=== PATIENT | female | born 1995 | race Caucasian/White ===

== ENCOUNTER 2022-08-25 00:35 | Emergency (ER) | payer MEDICAID, SELFPAY ==
--- NOTE | ~2022-08-25 | XR_ITS ---
EXAMINATION: XR CHEST CLINICAL INFORMATION: Pain, rule out pneumonia COMPARISON: None TECHNIQUE: Frontal view of the chest was obtained. FINDINGS: The lungs are clear with no focal consolidation. No evidence of pneumothorax, pulmonary edema, or pleural effusions. The cardiomediastinal silhouette is unremarkable. No acute osseous findings. XR/XR chest 1V IMPRESSION: No acute cardiopulmonary findings.
[2022-08-25 00:49] VITALS: BP 109/87; PULSE 74; RESP 18; TEMP 36.1; O2SAT 100; BMI 24.8
[2022-08-25 01:25] LABS: COVID-19 Test Negative (Negative); IDNOW Serial# BCCEAD1C
[2022-08-25 01:28] LABS: IDNOW Serial# 16C4AD1C; Influenza A Negative (Negative); Influenza B2 Negative (Negative)
--- NOTE | 2022-08-25 01:48 | ED.URI ---
HPI - URI/Sore Throat General Chief Complaint: Upper Respiratory Symptoms Stated Complaint: body ache Time Seen by Provider: 08/25/22 01:41 Source: patient Mode of arrival: ambulatory Limitations: no limitations History of Present Illness HPI Narrative: Patient comes to the emergency room complaining of 4 days of, subjective fever, chills, generalized malaise, several episodes of vomiting and diarrhea. Patient denies chest pain or shortness of breath. No abdominal pain. No UTI symptoms. Related Data Previous Rx's Medication Instructions Recorded ibuprofen 600 mg tablet 600 mg PO Q6H PRN fever or pain 08/25/22 #20 tabs loperamide 2 mg capsule 2 mg PO Q6H PRN loose stool #14 08/25/22 caps ondansetron HCl 4 mg tablet 4 mg PO Q6H PRN nausea and 08/25/22 vomiting #10 tabs Allergies Allergy/AdvReac Type Severity Reaction Status Date / Time No Known Allergies Allergy Verified 08/25/22 00:52 Review of Systems Review of Systems: Constitutional : No Weight loss, complaining of subjective fever and chills, generalized malaise ENT/Mouth : No Hearing loss, No Ear Pain, No Nasal Congestion, No Sinus Pain, No Hoarseness, No sore throat, No Rhinorrhea, No Swallowing Difficulty Eyes: No Eye Pain, No Swelling, No Redness, No Foreign Body, No Discharge, No Vision Changes Cardiovascular : No Chest Pain, No SOB, No Dyspnea on Exertion, No Orthopnea, No Edema, No Palpitations Respiratory : Complaining of productive Cough, No Sputum, No Wheezing, No Smoke Exposure, No Dyspnea Gastrointestinal : Complaining of nausea vomiting and diarrhea, No Constipation, No abdominal Pain, No Hematochezia, No Melena Genitourinary : no irregular bleeding, No Dysuria, No Urinary Frequency, No Hematuria, No Urinary Incontinence, No Urgency, No Flank Pain, No Urinary Flow Changes, No Hesitancy Musculoskeletal : No joint pain, No Myalgias, No Joint Swelling Skin : No Skin Lesions, No rash Neuro : No Weakness, No Numbness, No Paresthesias, No Loss of Consciousness, No Dizziness, No Headache Psych : No Anxiety/Panic, No Depression, No SI/HI/AH/VH, No Social Issues, Heme/Lymph: No Bruising, No Bleeding,No Lymphadenopathy Endocrine : No Polyuria, No Polydipsia, No Temperature Intolerance PMFSH Past Medical History Medical History Childhood asthma Physical Exam Vital Signs: Vital Signs: Last Vital Signs Temp 97 F 08/25/22 00:49 Pulse 74 08/25/22 00:49 Resp 18 08/25/22 00:49 BP 109/87 08/25/22 00:49 Pulse Ox 100 08/25/22 00:49 O2 Del Method 08/25/22 00:49 BMI result Body Mass Index 24.8 Const: Other: Appearance: Alert. Oriented X3. No acute distress. Eyes: Pupils equal, round and reactive to light. ENT: Pharynx normal. Neck: Normal inspection. Neck supple. No lymph nodes noted. No crepitus CVS: Normal heart rate and rhythm. Pulses normal. Normal S1 and S2 Respiratory: No respiratory distress. Breath sounds normal. No Wheezing. No rales Abdomen: Soft and nontender. No rigidity. No distention. Skin: Skin warm and dry. Normal skin color. Normal skin turgor. Extremities: No lower extremity edema. No Lacerations. No Rash Neuro: Oriented X 3. No motor deficit. No sensory deficit. Moving all extremities. No slurred speech. CN 2 through 12 grossly intact Psych: calm, cooperative, normal affect Course Course Course Narrative: Patient tested negative for COVID and influenza, chest x-ray negative. Patient likely has a viral syndrome. Patient given p.o. loperamide and Zofran. MDM - URI/Sore Throat Lab Data Labs: Lab Results 08/25/22 08/25/22 Range/Units 00:55 00:56 COVID-19 (HÉCTOR) Negative (Negative) COVID-19 Clin Com See Note Influenza Type A (SD) Negative (Negative) Influenza Type B (DS) Negative (Negative) Influenza A & B Note See Note Imaging Data Chest x-ray: Radiologist's impression: FINDINGS: The lungs are clear with no focal consolidation. No evidence of pneumothorax, pulmonary edema, or pleural effusions. The cardiomediastinal silhouette is unremarkable. No acute osseous findings. XR/XR chest 1V IMPRESSION: No acute cardiopulmonary findings Discharge Plan Discharge Clinical Impression: Acute viral syndrome, Nausea vomiting and diarrhea Patient Disposition: Home, Self-Care Instructions: Upper Respiratory Infection (ED), Acute Nausea and Vomiting (ED) Additional Instructions: Please follow-up with your primary care physician tomorrow. If you have any worsening or new symptoms, please return to the emergency room or call 911 Prescriptions: New ibuprofen 600 mg tablet 600 mg PO Q6H PRN (Reason: fever or pain) Qty: 20 0RF loperamide 2 mg capsule 2 mg PO Q6H PRN (Reason: loose stool) Qty: 14 0RF ondansetron HCl 4 mg tablet 4 mg PO Q6H PRN (Reason: nausea and vomiting) Qty: 10 0RF
[2022-08-25] MEDS: Loperamide HCl 2 MG CAPSULE 4 MG PO (02:01)
[2022-08-25] MEDS: Ondansetron ODT 4 MG TAB.RAPDIS TRANSLINGU (02:01)
--- OUTSIDE RECORDS SUMMARY | 2022-08-25 02:07 | XMS_ITS | Continuity of Care Document ---
:1995 Author Organization [facility] Address [address] [place] [address]- Care Team Providers Name Role Phone Not on Staff, PCP Primary Care Physician Unavailable Encounter [facility] [place] Date(s): 12/22/20 - 01/21/21 [facility] [address], [place] [address] Allergies, Adverse Reactions, Alerts Substance Reaction Severity Status NKA Active Immunizations Not Given Vaccine Date Status Refusal Reason influenza virus vaccine, inactivated 12/14/20 Not Given Patient Refuses Medications loperamide 2 mg oral tablet 1 tablet = 2 mg, By Mouth, Every 6 hours, PRN as needed for loose stool, not to exceed 16 mg/day, # 20 tablet, 0 Refills, Maintenance, 12/16/20 17:56:00 EDT, Tablet, [facility], Partial fill upon patient request if the prescription is fo... Start Date: 12/16/20 Status: OrderedZofran 4 mg oral tablet 1 tablet = 4 mg, By Mouth, Every 8 hours, PRN Nausea & Vomiting, # 20 tablet, 0 Refills, Maintenance, 12/16/20 17:55:00 EDT, Tablet, [facility], Partial fill upon patient request if the prescription is for a schedule II opioid drug., 157... Start Date: 12/16/20 Status: Ordered Social History Social History Type Response Smoking Status Never (less than 100 in life time) entered on: 12/13/20 Sex
--- OUTSIDE RECORDS SUMMARY | 2022-08-25 02:07 | XMS_ITS | Continuity of Care Document ---
:1995 Author Organization [facility] Address [address] [place] [address]- Care Team Providers Name Role Phone Not on Staff, PCP Primary Care Physician Unavailable Encounter [facility] [place] Date(s): 12/19/20 - 01/18/21 [facility] [address] [place], [place] [address] Allergies, Adverse Reactions, Alerts Substance Reaction Severity [...] 0 Refills, Maintenance, 12/16/20 17:56:00 EDT, Tablet, [facility], Partial fill upon patient request if the prescription is fo... Start Date: 12/16/20 Status: OrderedZofran 4 mg oral tablet 1 tablet = 4 mg, By Mouth, Every 8 hours, PRN Nausea & Vomiting, # 20 tablet, 0 Refills, Maintenance, 12/16/20 17:55:00 EDT, Tablet, [facility], Partial fill upon patient request if the prescription is for a schedule II opioid drug., 157... Start Date: 12/16/20 Status: Ordered Social History Social History Type Response Smoking Status Never (less than 100 in life time) entered on: 12/13/20 Sex
--- OUTSIDE RECORDS SUMMARY | 2022-08-25 02:07 | XMS_ITS | Continuity of Care Document ---
:1995 Author Organization [facility] Address [address] [place] [address]- Care Team Providers Name Role Phone Not on Staff, PCP Primary Care Physician Unavailable Encounter [facility] [place] [place] Date(s): 12/24/20 - 04/23/21 [facility] [address] [place] [id number] Attending Physician: Joel Rossi MD Admitting Physician: Joel Rossi MD Referring Physician: Not on Staff, Referring MD Allergies, Adverse Reactions, Alerts Substance Reaction Severity [...] 0 Refills, Maintenance, 12/16/20 17:56:00 EDT, Tablet, [facility], Partial fill upon patient request if the prescription is fo... Start Date: 12/16/20 Status: OrderedZofran 4 mg oral tablet 1 tablet = 4 mg, By Mouth, Every 8 hours, PRN Nausea & Vomiting, # 20 tablet, 0 Refills, Maintenance, 12/16/20 17:55:00 EDT, Tablet, [facility], Partial fill upon patient request if the prescription is for a schedule II opioid drug., 157... Start Date: 12/16/20 Status: Ordered Social History Social History Type Response Smoking Status Never (less than 100 in life time) entered on: 12/13/20 Sex
--- OUTSIDE RECORDS SUMMARY | 2022-08-25 02:07 | XMS_ITS | Continuity of Care Document ---
:1995 Author Organization [facility] Address [address] [place] [address]- Care Team Providers Name Role Phone Not on Staff, PCP Primary Care Physician Unavailable Encounter [facility] [place] Date(s): 12/13/20 - 12/16/20 [facility] [address] [place] [id number] Encounter Diagnosis enteritis (Final) - 12/14/20 Discharge Disposition: A-D/C Home Attending Physician: Edin Barrera MD Admitting Physician: Zeke Lee MD Referring Physician: Not on Staff, Referring [...] 0 Refills, Maintenance, 12/16/20 17:56:00 EDT, Tablet, [facility], Partial fill upon patient request if the prescription is fo... Start Date: 12/16/20 Status: OrderedZofran 4 mg oral tablet 1 tablet = 4 mg, By Mouth, Every 8 hours, PRN Nausea & Vomiting, # 20 tablet, 0 Refills, Maintenance, 12/16/20 17:55:00 EDT, Tablet, [facility], Partial fill upon patient request if the prescription is for a schedule II opioid drug., 157... Start Date: 12/16/20 Status: Ordered Results Orders for Microbiology Reports Name Date Stool Culture 12/15/20 Microbiology Reports TEST:Stool Culture STATUS:Unauthenticated BODY SITE: SOURCE:STOOL COLLECTED DATE/TIME:12/15/20 7:25 PMStool Culture SPECIMEN DESCRIPTION : STOOL IN FRANK BARBARA PRESERVATIVE SPECIAL REQUESTS : NONE REPORT STATUS : PRELIMINARY REPORT Vital Signs Most recent to oldest 1 2 3 [Reference Range]: Height 157.48 cm 157.48 cm 157.48 cm (12/16/20 4:02 PM) (12/16/20 11:54 AM) (12/16/20 8: 19 AM) Weight 63.63 kg 63.63 kg (12/16/20 8:19 AM) (12/13/20 8:24 PM) Oxygen Saturation [94-100 %] 100 % 100 % 100 % (12/16/20 4:02 PM) (12/16/20 11:54 AM) (12/16/20 10 :30 AM) Pulse Rate [55-90 bpm] 83 bpm 70 bpm 82 bpm (12/16/20 4:02 PM) (12/16/20 11:54 AM) (12/16/20 8: 19 AM) Body Mass Index [18.5-24.99] 25.66 25.66 *H* *H* (12/16/20 8:19 AM) (12/13/20 8:24 PM) Blood Pressure [90-138/55-84 113/76 mm Hg 134/79 mm Hg 109 /82 mm Hg mm Hg] (12/16/20 4:02 PM) (12/16/20 11:54 AM) (12/16/20 10 :30 AM) Respiratory Rate [16-30 16 br/min 17 br/min 16 br/mi n br/min] (12/16/20 4:02 PM) (12/16/20 11:54 AM) (12/16/20 10 :30 AM) Temperature [96.8-100.4 DegF] 98.8 DegF 97.8 DegF 97 .9 DegF (12/16/20 4:02 PM) (12/16/20 11:54 AM) (12/16/20 8: 19 AM) Mode of Delivery (Oxygen) Room air Room air Room a ir (12/16/20 4:02 PM) (12/16/20 11:54 AM) (12/16/20 10 :30 AM) Blood pressure sites Arm, right Arm, right Arm, left (12/16/20 4:02 PM) (12/16/20 11:54 AM) (12/16/20 10 :30 AM) Temperature Route Oral Oral Tympanic (12/16/20 4:02 PM) (12/16/20 11:54 AM) (12/16/20 8: 19 AM) Dry Weight 63.63 kg (12/13/20 8:24 PM) Social History Social History Type Response Smoking Status Never (less than 100 in life time) entered on: 12/13/20 Sex
--- OUTSIDE RECORDS SUMMARY | 2022-08-25 02:07 | XMS_ITS | Continuity of Care Document ---
:1995 Author Organization [facility] Address [address] [place] [id number]- Care Team Providers Name Role Phone Not on Staff, PCP Primary Care Physician Unavailable Encounter [facility] Date(s): 03/24/21 - 04/23/21 [facility] [address] [place] [id number] Attending Physician: Ramon Posada Admitting Physician: Admtr, Ramon Referring Physician: Admtr, Ar8 Allergies, Adverse Reactions, Alerts Substance Reaction Severity [...] 0 Refills, Maintenance, 12/16/20 17:56:00 EDT, Tablet, [facility], Partial fill upon patient request if the prescription is fo... Start Date: 12/16/20 Status: OrderedZofran 4 mg oral tablet 1 tablet = 4 mg, By Mouth, Every 8 hours, PRN Nausea & Vomiting, # 20 tablet, 0 Refills, Maintenance, 12/16/20 17:55:00 EDT, Tablet, [facility], Partial fill upon patient request if the prescription is for a schedule II opioid drug., 157... Start Date: 12/16/20 Status: Ordered Social History Social History Type Response Smoking Status Never (less than 100 in life time) entered on: 12/13/20 Sex
== END 2022-08-25 02:16 | disposition home or self-care (01) ==
PROVIDERS: Emergency Provider Emergency Medicine
DX: B34.9 Viral infection, unspecified (principal); M79.10 Myalgia, unspecified site; R07.89 Other chest pain; R11.2 Nausea with vomiting, unspecified; Z20.822 Contact with and (suspected) exposure to COVID-19; Z79.899 Other long term (current) drug therapy
CPT/HCPCS: 71045; 87502; 87635; 99283